=== PATIENT | male | born 1925 | race Caucasian/White ===

== ENCOUNTER 2016-09-02 13:21 | Outpatient (CLI) | payer OTHER ==
[~2016-09-02 13:21] MED LIST: AMIODARONE HCL200 MG PO; AMLODIPINE BES2.5 MG PO; ATORVASTATIN CA20 MG PO; ELIQUIS5 MG PO; FINASTERIDE5 MG PO; FUROSEMIDE20 MG PO; FUROSEMIDE40 MG PO; GALANTAMINE HYDR8 MG PO; MECLIZINE HCL25 M1 PO; MELATONIN3 MG PO; OMEPRAZOLE20 M1 PO; POLYETHYLENE PO; POTASSIUM CHLO10 ME2 PO; SERTRALINE HCL25 MG PO; TAMSULOSIN HCL0.4 MG PO; TRAZODONE HCL50 MG PO; TROSPIUM CHLORI20 MG PO
== END 2016-09-02 23:00 | disposition home or self-care (01) ==
LOC: LAB SRH 13:21
DX: D64.9 Anemia, unspecified (principal); I10 Essential (primary) hypertension; R53.83 Other fatigue; I48.0 Paroxysmal atrial fibrillation
CPT/HCPCS: 90074; 90100; 91585; 95059